=== PATIENT | male | born 1965 | race African-American/Black ===

== ENCOUNTER 2019-07-16 08:32 | Outpatient (CLI) | payer OTHER, SELFPAY ==
--- NOTE | 2019-07-16 08:38 | ECG_ITS ---
Measurements Intervals [place] Rate: 59 P: 32 NE: 204 QRS: -18 QRSD: 114 T: 30 QT: 437 QTc: 433 Interpretive Statements SINUS BRADYCARDIA INTRAVENTRICULAR CONDUCTION DELAY BORDERLINE R WAVE PROGRESSION, ANTERIOR LEADS BORDERLINE ECG Electronically Signed On 07-16-2019 9:47:22 [employer] by Giovanni Patel D.O.
== END 2019-07-16 08:33 | disposition home or self-care (01) ==
LOC: ANHSURGERY 08:38
PROVIDERS: PCP Family Medicine; Visit Provider Surgery
DX: E78.5 Hyperlipidemia, unspecified (principal); I45.9 Conduction disorder, unspecified
CPT/HCPCS: 93005

== ENCOUNTER 2019-07-30 00:35 | Day surgery (SDC) | payer OTHER, SELFPAY ==
[2019-07-09 13:29] VITALS: BMI 36.8
--- NOTE | 2019-07-16 14:28 | PC.NURSE ---
PT DENIES ANY CHANGE IN HEALTH OR MEDICATION SINCE INTERVIEW. NEW DATE AND TIME GIVEN. DENIES ANY QUESTIONS ABOUT INSTRUCTIONS
[2019-07-30] MEDS: LACTATED RINGERS 1,000 ML 30 ML IV CONT ×2 (11:15→14:45)
[2019-07-30 11:17] VITALS: BP 112/67; PULSE 68; RESP 20; TEMP 36.8; O2SAT 99
--- NOTE | 2019-07-30 12:31 | PM.PROC ---
Procedure Note - Detailed Date of procedure: 07/30/19 Pre-op diagnosis: Hidradenitis Suppurativa Post-op diagnosis: same Procedure performed: 1. Excision 8cm Perineal Hidradenitis 2. Excision 6cm and 4cm left groin hidradenitis 3. Excision 4cm right groin hidradenitis Description of procedure: Procedure as well as risks, benefits, and alternatives were discussed with the patient. Written consent was obtained and placed in chart prior to procedure. Patient was brought back to surgical suite. He was placed supine on operating table. Time-out was done to confirm patient procedure. He was then intubated by the Anesthesia Department. He was then repositioned in to modified lithotomy position in stirrups. His perineal and groin region was prepped and draped in sterile fashion using Betadine prep. 1% lidocaine with epinephrine was infiltrated locally around the 3 areas for hidradenitis excision. The perineal region was excised 1st. An 8 cm elliptical incision was made around the area of hidradenitis in the perineum using a 15 blade scalpel. Electrocautery was used for hemostasis and for dissection through the subcutaneous tissue the involved skin was carefully excised completely using electrocautery. The wound bed was then inspected, and hemostasis appeared adequate. The area was then irrigated with sterile saline. The skin was then reapproximated using 4 0 nylon simple interrupted sutures. I then proceeded with the low left groin hidradenitis. A 6 cm elliptical incision was made around the area of left groin hidradenitis using a 15 blade scalpel. This was sharply carried down through the skin into the subcutaneous tissue. Electrocautery was then used for complete excision from the underlying subcutaneous attachments. There appeared to be some undermining more proximally in the groin to another area of hidradenitis. The decision was then made to also excise this area. A 4 cm elliptical incision was made around this 2nd area of hidradenitis in the left groin region. This was also excised using electrocautery. The area was then irrigated with sterile saline. The 2 incisions on this side were reapproximated using a combination of 4 0 nylon simple interrupted sutures and 3 0 nylon vertical mattress interrupted sutures. The right groin hidradenitis was then excised. A 4 cm elliptical incision was made around this area using a 15 blade scalpel. The incision was sharply carried down through the skin, and then electrocautery was used to excise the involved skin from the surrounding subcutaneous attachments. This area was irrigated with sterile saline and then the skin edges were reapproximated using 4 0 nylon simple interrupted sutures. Bacitracin ointment was then applied over each of the incisions, and 4 x 4 gauze ABD pads and mesh underwear were then applied. The patient was then awakened from anesthesia, extubated, and transferred to recovery. Anesthesia: GETA and local (1% lidocaine with epi) Surgeon: Santiago Garcia DO Estimated blood loss (mL): 20 Complications: No immediate complications Condition: stable Disposition: same day Findings: This is a 54-year-old man who presented with areas of weeping wounds on his perineum and groin region. He has had multiple infections in these regions and continues to have wounds that do not fully heal. He has been placed on multiple rounds of antibiotics, but continues to have drainage from these wounds. He has had an area of hidradenitis excised in the left groin region once in the past, and this appeared to reoccur in the same location. Discussions were made with the patient about treatment options, and decision was made to proceed with excision of perineal hidradenitis and bilateral groin hidradenitis. Excision of hidradenitis was performed as described above. The patient had significant tracking in the perineal region involving several tracks underneath the skin. There was some bloody drainage, but no sign
--- NOTE | 2019-07-30 12:32 | PM.IMHP ---
H&P: HPI History of Present Illness Chief complaint: Hidradenitis Suppurativa Narrative: Poncho Ochoa is a 54 year old male who presents with multiple areas of drainage and intermittent infection in his groin and perineal region. He has been on antibiotics multiple times but continues to have drainage. Review of Systems Review of Systems: All systems reviewed & are unremarkable except as noted in HPI and below (HPI) PMFSH Past Medical History Medical History Arthropathy, chondrocalcinosis, shoulder Ganglion cyst Hyperlipidemia ALEJANDRO (obstructive sleep apnea) Wrist arthropathy Surgical History Surgical History Dislocation of carpometacarpal joint of thumb H/O shoulder surgery Hidradenitis History of Achilles tendon repair History of colonoscopy History of uvulopalatopharyngoplasty Social History Social History Smoking status: Never smoker Alcohol intake: current Substance use: never Gender identity (if verbalized by the patient): Male Meds Home Medications and Allergies Home Medications Medication Instructions Recorded Confirmed Type atorvastatin 20 mg tablet 20 mg PO DAILY 06/20/19 07/30/19 History doxycycline hyclate 100 mg capsule 100 mg PO DAILY 06/20/19 07/30/19 History meloxicam 15 mg tablet 15 mg PO DAILY 06/20/19 07/30/19 History triamcinolone acetonide 0.1 % 1 applic TOPICAL BID 06/20/19 07/30/19 History topical cream Allergies Allergy/AdvReac Type Severity Reaction Status Date / Time apricot Allergy Mild hives Verified 07/30/19 11:09 Sulfa (Sulfonamide Allergy Mild hives Verified 07/30/19 11:09 Antibiotics) Influenza Virus Vaccines AdvReac Mild gets reall Verified 07/30/19 11:09 sick from it Vital Signs Vital Signs - 24 hr 07/30/19 11:17 Temperature 36.8 C Pulse Rate 68 Respiratory Rate 20 Blood Pressure 112/67 Pulse Oximetry 99 Exam Const: General: no acute distress and alert Orientation/consciousness: patient oriented x3 HENMT: Head: normocephalic and atraumatic Ears: hearing grossly normal bilaterally General nose exam: Normal nares present Mouth: Yes Normal oral and palatal mucosa present Eyes: Periorbital: periorbital findings normal Sclera: sclerae normal EOM: EOMs intact bilaterally Neck: Neck: normal visual inspection, no lymphadenopathy and trachea midline Chest: Chest palpation & inspection: normal inspection of the chest Resp: Effort & Inspection: normal respiratory effort Auscultation: clear to auscultation bilaterally Cardio: Jugular venous distension: no JVD Rate: regular rate Rhythm: regular rhythm Heart sounds: S1 normal heart sound present and S2 normal heart sound present Peripheral pulses: Peripheral pulses 2+ throughout GI: Inspection: normal to inspection GI Palp: Yes Soft to palpation, No Tenderness to palpation present (GI), No Guarding due to palpation present (GI) and No Rebound tenderness present Percussion: Yes normal to percussion Auscultation: normal bowel sounds : General: Yes no CVA tenderness Back/Spine/Pelvis: Back: no CVA tenderness Skin: Lesions: other (bilateral groin hidradentitis and perineal hidradenitis) Neuro: General: patient oriented x3, no focal motor deficits and CN's II-XI intact bilaterally Cognition (Neuro): normal cognition Speech: normal speech Motor exam (neuro): 5/5 motor strength present throughout Extrem: General: capillary refill normal and no clubbing, cyanosis or edema Assessment and Plan Assessment and plan (1) Hidradenitis suppurativa: Code(s): L73.2 - Hidradenitis suppurativa Status: Acute Assessment and Plan: I have recommended excision of bilateral groin hidradenitis and excision of perineal hidradenitis. I have discussed the procedure, risks, benefits, and alternatives w
--- NOTE | 2019-07-30 12:36 | P.PNAN_ITS ---
Anes - Initial Pre Proc Eval Procedure: Operation Date: 07/30/19 13:00 Proposed Procedures p Excision Bilateral Groin Hidradenitis, Excision Perineal Hidradenitis - Santiago Garcia DO Date/Time: 07/30/19 12:36 Surgeon: Santiago Garcia DO Pre Op Diagnosis: Hidradenitis Suppurativa Patient Data Age: 54 Gender: M Height: 1.83 m Weight: 126.6 kg Last Vital Signs Temp 36.8 C 07/30/19 11:17 Pulse 68 07/30/19 11:17 Resp 20 07/30/19 11:17 BP 112/67 07/30/19 11:17 Pulse Ox 99 07/30/19 11:17 Allergies Allergy/AdvReac Type Severity Reaction Status Date / Time apricot Allergy Mild hives Verified 07/30/19 11:09 Sulfa (Sulfonamide Allergy Mild hives Verified 07/30/19 11:09 Antibiotics) Influenza Virus Vaccines AdvReac Mild gets reall Verified 07/30/19 11:09 sick from it Home Medications Medication Instructions Recorded Confirmed Type atorvastatin 20 mg tablet 20 mg PO DAILY 06/20/19 07/30/19 History doxycycline hyclate 100 mg capsule 100 mg PO DAILY 06/20/19 07/30/19 History meloxicam 15 mg tablet 15 mg PO DAILY 06/20/19 07/30/19 History triamcinolone acetonide 0.1 % 1 applic TOPICAL BID 06/20/19 07/30/19 History topical cream ECG: SINUS BRADYCARDIA INTRAVENTRICULAR CONDUCTION DELAY BORDERLINE R WAVE PROGRESSION, ANTERIOR LEADS BORDERLINE ECG Patient hx anesthesia problems: none Family hx anesthesia problems: none [facility] Past Medical History Medical History Arthropathy, chondrocalcinosis, shoulder Ganglion cyst Hyperlipidemia ALEJANDRO (obstructive sleep apnea) Wrist arthropathy Surgical History Surgical History Dislocation of carpometacarpal joint of thumb H/O shoulder surgery Hidradenitis History of Achilles tendon repair History of colonoscopy History of uvulopalatopharyngoplasty Social History Social History Smoking status: Never smoker Alcohol intake: current Substance use: never Gender identity (if verbalized by the patient): Male Anes - Eval Final PreProcedure Day of Procedure 07/30/19 12:36 Informed Consent: The patient's anesthetic plan and its attendant risks and benefits were discussed with the patient/family/POA. Questions were solicited and answers provided to the satisfaction of the patient/family/POA.
[2019-07-30] MEDS: ceFAZolin 3 GM/D5W 100 ML 100 ML IVPB (12:49)
[2019-07-30] MEDS: LIDO 1%/EPINEPHRINE 1:100,000 20 ML VIAL INFILTRATE (13:27)
[2019-07-30] MEDS: BACITRACIN OINTMENT 15 GM TUBE 1 APPLIC TOPICAL (13:53)
[2019-07-30] MEDS: KETOROLAC 30 MG/ML VIAL (*BKC) IV PUSH (14:26)
[2019-07-30 14:45] VITALS: BP 132/68; PULSE 75; RESP 22; TEMP 36.1; O2SAT 100
[2019-07-30 15:00] VITALS: BP 130/78; PULSE 87; RESP 18; O2SAT 100
[2019-07-30 15:15] VITALS: BP 142/82; PULSE 77; RESP 14; O2SAT 100
[2019-07-30 15:25] VITALS: BP 131/64; PULSE 68
[2019-07-30 15:55] VITALS: BP 123/59; PULSE 67
== END 2019-07-30 16:28 | disposition home or self-care (01) ==
PROVIDERS: PCP Family Medicine; Visit Provider Surgery
PROC: (CPT 11462; principal; 2019-07-30 13:00)
DX: L73.2 Hidradenitis suppurativa (principal); E78.5 Hyperlipidemia, unspecified; G47.33 Obstructive sleep apnea (adult) (pediatric)
CPT/HCPCS: 11462; 11470; 88304; A9270; J0330; J0690; J1100; J1885; J2250; J2370; J2405; J2704; J3010; J7120

== ENCOUNTER 2019-11-20 07:45 | Outpatient (RCR) | payer OTHER, SELFPAY ==
[2019-09-13 12:25] VITALS: BMI 38.7
--- NOTE | 2019-09-25 16:33 | WPDWOUNDNOTE ---
Wound Care Note Date/Time: 09/25/19 12:33 History: The patient has a history of Hidradenitis Suppurativa, hyperlipidemia, and obstructive sleep apnea who was evaluated by Dr. Garcia for the H.S. after being on antibiotics multiple times for areas of infection and intermittent drainage of the groin and perineal area. Wound history: The patient underwent excision of 8cm perineal hidradenitis, excision 6cm and 4cm left groin hidradenitis, and excision 4cm right groin hidradenitis on 07/30/19. Pathology showed hidradenitis suppurativa. Since surgery, he has been followed as an outpatient by Dr. Garcia regarding wound care. His perineal and right groin incisions had dehisced post-operatively and now he is dealing with chronic wound care. Left groin incision remained intact and after sutures were removed in the office, this wound has apparently been healing well without complaints. He was referred to the wound clinic by Dr. Garcia to evaluate the patient for wound care. The patient has been applying silver gel and gauze to the open wounds daily. The patient reports his pain has improved tremendously and he is now just having intermittent twinges of pain with certain movements, such as bending or squating. He reports that for the past 1.5 weeks he has been noticing bleeding. He states that about 1.5 weeks ago he had a significant amount of bleeding that he noticed after having a bowel movement. He called the wound clinic and increased his dressing changes. He states his dressings were saturated in blood and he was having to change them frequently throughout the day. The bleeding quickly diminished but he is still reporting having bloody drainage that he associated with one of his incisions. He reports that he is taking 3 showers a day and requiring gauze dressing changes three times daily. When he changes the gauze, he states the gauze is nearly saturated with a yellow/bloody drainage. He reports significant tenderness in the perineum that is slightly more tender over the past two weeks. Denies fevers or chills. No other complaints. Wound approximation: No Wound width: Left groin: 1cm Right perineal: 0.2cm Wound length: Left groin: 5cm Right perineal: 3.3cm Wound depth: Left groin: 0.2 cm Right perineal: 1 cm Drainage: Right perineal: Bloody drainage Surrounding tissue appearance: No surrounding signs of infection. About a 1 cm area of induratio noted just medial and anterior to the perineal incision that is in the crease of the skin that is TTP. Tunneling: Right perineal incision with a new opening just medial to this that had 1 cm of tunneling anteriorly. Dressings: Silver gel and gauze. Assessment and Plan Assessment and plan (1) Hidradenitis suppurativa: Code(s): L73.2 - Hidradenitis suppurativa Status: Acute Assessment and Plan: The patient is now dealing with chronic wounds that are slowly healing following surgery. The left groin incision continues to heal well and is stable at this time. The right perineal incision does have a new 0.5 cm opening directly medial to the incision that is connected but shows no evidence of acute infection. This incision appears to be the area that the patient is having some bleeding from. We were able to get the bleeding to stop while in the office with holding pressure and his dressings were reapplied. Instructed the patient to continue local wound care with silver gel and gauze dressing changes with showering three times daily. I spoke with Dr. Garcia regarding this patient's case and his exam today. He will plan to follow-up with the patient in 1-2 weeks back in the wound clinic. I instructed the patient to also apply pressure to the perineal incision for about 10 minutes if he has an episode of increased bleeding as he did before and if the bleeding does not resolve, then he should call the office/wound clinic. Will follow-up in 1-2 weeks. (2) Encounter for surgical aftercare following surgery on the skin and subc
--- NOTE | 2019-10-08 14:46 | P.PNWOUND_ITS ---
Wound Care Note Date/Time: 10/08/19 14:46 History: s/p excision hidradenitis perineum, right groin and left groin 07/30/19 Wound history: Patient had perineum and right groin wound dehisce in the early postoperative period. Left groin wound healed appropriately. He was continuing local wound care at home for a month, but was not having much progress. Referred to wound clinic for help with wound care. He has been applying silver gel daily to the open wounds. At visit on 09/24, he was having a lot of bloody drainage and induration around right groin wound. This appeared to track to a new area just medial to the open wound and eventually opened as well. Drainage and bleeding has significantly improved since then. He is doing well with continued daily dressing changes. Wound approximation: No Surrounding tissue appearance: healthy Percentage granulation tissue: 100% Dressings: Silver gel and 4x4 gauze daily Assessment and Plan Assessment and plan (1) Encounter for surgical aftercare following surgery on the skin and subcutaneous tissue: Code(s): Z48.817 - Encounter for surgical aftercare following surgery on the skin and subcutaneous tissue Status: Acute Assessment and Plan: * Continue local wound care with Wound Clinic. Silver gel and 4x4 gauze daily. Will reassess in 2 weeks. Call for increasing drainage or other new problems. (2) Hidradenitis suppurativa: Code(s): L73.2 - Hidradenitis suppurativa Status: Acute Review of Systems Constitutional: Constitutional: Denies chills and Denies fever(s) Exam Skin: Other: Open wounds of perineum and right groin as described in wound care nurse documentation.
--- NOTE | 2019-10-22 12:53 | P.PNWOUND_ITS ---
Wound Care Note Date/Time: 10/22/19 12:53 History: s/p excision hidradenitis perineum, right groin and left groin 07/30/19 Wound history: Patient had perineum and right groin wound dehisce in the early postoperative period. Left groin wound healed appropriately. He was continuing local wound care at home for a month, but was not having much progress. Referred to wound clinic for help with wound care. He has been applying silver gel daily to the open wounds. At visit on 09/24, he was having a lot of bloody drainage and induration around right groin wound. This appeared to track to a new area just medial to the open wound and eventually opened as well. Drainage and bleeding has significantly improved since then. He is doing well with continued daily dressing changes. Pain is minimal at this point and he is no longer having the significant bloody drainage. Wound approximation: No Drainage: serosanguinous Surrounding tissue appearance: healthy Percentage granulation tissue: 100% Assessment and Plan Assessment and plan (1) Encounter for surgical aftercare following surgery on the skin and subcutaneous tissue: Code(s): Z48.817 - Encounter for surgical aftercare following surgery on the skin and aleman bcutaneous tissue Status: Acute Assessment and Plan: * Continue daily wound care at home with Silver Gel and 4x4 gauze. Will have patient follow up in wound clinic in 4 weeks. Call sooner for any significant problems. (2) Hidradenitis suppurativa: Code(s): L73.2 - Hidradenitis suppurativa Status: Acute Review of Systems Constitutional: Constitutional: Denies chills and Denies fever(s) Exam Skin: Other: Wound in perineum is very shallow and continuing to close. Right groin wound healing as well.
--- NOTE | 2019-11-20 14:39 | P.PNWOUND_ITS ---
Wound Care Note Date/Time: 11/20/19 14:39 History: s/p excision hidradenitis perineum, right groin and left groin 07/30/19 Wound history: Patient had perineum and right groin wound dehisce in the early postoperative period. Left groin wound healed appropriately. He was continuing local wound care at home for a month, but was not having much progress. Referred to wound clinic for help with wound care. He has been applying silver gel daily to the open wounds. At visit on 09/24, he was having a lot of bloody drainage and induration around right groin wound. This appeared to track to a new area just medial to the open wound and eventually opened as well. Drainage and bleeding has significantly improved since then. He is doing well with continued daily dressing changes. Over the past couple weeks, he has been more active and has noticed a little more pain with the wound in the perineum. He still notices bleeding when having a BM. Wound approximation: No Drainage: serosanguinous and slightly purulent Surrounding tissue appearance: healthy Percentage granulation tissue: 100% Wound width: 0.6 cm Wound length: 6 cm Wound depth: 0.1 cm Dressings: Mupirocin ointment with Silver gel and gauze bandage Assessment and Plan Assessment and plan (1) Hidradenitis suppurativa: Code(s): L73.2 - Hidradenitis suppurativa Status: Acute Assessment and Plan: * Continue daily wound care at home with Mupirocin ointment, Silver Gel and 4x4 gauze. Will have patient follow up in wound clinic in 4 weeks. Call sooner for any significant problems. (2) Non-healing surgical wound: Qualifiers: Encounter type: subsequent encounter Qualified Code(s): T81.89XD - Other complications of procedures, not elsewhere classified, subsequent encounter Code(s): T81.89XA - Other complications of procedures, not elsewhere classified, initial encounter Status: Acute Review of Systems Review of Systems: All systems reviewed & are unremarkable except as noted in HPI and below Exam Skin: Other: See wound assessment. No surrounding erythema, warmth, or fluctuance.
== END 2019-12-12 23:59 | disposition home or self-care (01) ==
LOC: ANHWOC 07:45
PROVIDERS: Visit Provider Surgery
DX: L73.2 Hidradenitis suppurativa (principal)
CPT/HCPCS: 99212; A9270; G0463

== ENCOUNTER 2019-12-31 07:28 | Outpatient (RCR) | payer OTHER, SELFPAY ==
[2019-12-13 00:04] VITALS: BMI 38.7
--- NOTE | 2019-12-17 14:48 | P.PNWOUND_ITS ---
Wound Care Note Date/Time: 12/17/19 14:48 History: s/p excision hidradenitis perineum, right groin and left groin 07/30/19 Wound history: Patient had perineum and right groin wound dehisce in the early postoperative period. Left groin wound healed appropriately. He was continuing local wound care at home for a month, but was not having much progress. Referred to wound clinic for help with wound care. He has been applying silver gel daily to the open wounds. At visit on 09/24, he was having a lot of bloody drainage and induration around right groin wound. This appeared to track to a new area just medial to the open wound and eventually opened as well. The past 2 weeks have been increasingly more painful with significant pain along the right groin/perineum. He has been changing the gauze more frequently and applying silver gel often. States this feels about the same way that it felt before he had the original surgery. Wound approximation: No Wound width: 1cm Wound length: 4cm Wound depth: 0.2cm Drainage: serosanguinous and purulent Surrounding tissue appearance: healthy Percentage granulation tissue: 100% Assessment and Plan Assessment and plan (1) Hidradenitis suppurativa: Code(s): L73.2 - Hidradenitis suppurativa Status: Acute Assessment and Plan: * Patient now appears to be developing a new area of hidradenitis to right groin region and continues to have problems with perineum not healing. Will prescribe Doxycycline 100mg BID x 14 days to allow purulent drainage to clear up. Also will change to triple care antifungal cream to aid with skin h ealing. Will reassess after 2 more weeks of antibiotics, but will likely require another surgery to excise the new area and attempt to excise and close the non-healing wound in the midline perineum. Patient voiced his understanding and is agreeable to plan. (2) Non-healing surgical wound: Qualifiers: Encounter type: subsequent encounter Qualified Code(s): T81.89XD - Other complications of procedures, not elsewhere classified, subsequent encounter Code(s): T81.89XA - Other complications of procedures, not elsewhere classified, initial encounter Status: Acute Exam Skin: Other: See wound measurements
--- NOTE | 2019-12-31 09:29 | P.PNWOUND_ITS ---
Wound Care Note Date/Time: 12/31/19 09:29 History: s/p excision hidradenitis perineum, right groin and left groin 07/30/19 Wound history: Patient had perineum and right groin wound dehisce in the early postoperative period. Left groin wound healed appropriately. He was continuing local wound care at home for a month, but was not having much progress. Referred to wound clinic for help with wound care. He has been applying silver gel daily to the open wounds. At visit on 09/24, he was having a lot of bloody drainage and induration around right groin wound. This appeared to track to a new area just medial to the open wound and eventually opened as well. Two weeks ago, wounds have been increasingly more painful with significant pain along the right groin/perineum. He has been changing the gauze more frequently and applying silver gel often. States this feels about the same way that it felt before he had the original surgery. He was given a 2 week course of antibiotics without much relief. Wound approximation: No Assessment and Plan Assessment and plan (1) Hidradenitis suppurativa: Code(s): L73.2 - Hidradenitis suppurativa Status: Acute Assessment and Plan: * Patient continues to have problematic areas along right groin and perineum. He has tried several months of local wound care and oral antibiotics without significant improvement. I have recommended excision of right groin and perineum hidradentitis. I have discussed the procedure, risks, benefits, and alternatives. Questions answered. Patient would like to proceed with surgery in the first week of January if possible. Exam 2 Skin: Other: Multiple open wounds along right groin with scant purulent and bloody drainage. Midline perineum wound with granulation tissue and serosanguinous drainage.
== END 2020-03-03 09:51 | disposition home or self-care (01) ==
LOC: ANHWOC 07:28
PROVIDERS: Visit Provider Surgery
DX: L73.2 Hidradenitis suppurativa (principal)
CPT/HCPCS: 99212; G0463

== ENCOUNTER 2020-01-19 01:47 | Outpatient (CLI) | payer OTHER, SELFPAY ==
[2020-01-19 19:30] LABS: SARS-CoV-2 RNA PCR Negative
== END 2020-01-19 01:48 | disposition home or self-care (01) ==
LOC: ANHCOVIDDT 01:47
PROVIDERS: PCP Family Medicine; Visit Provider Surgery
DX: Z01.812 Encounter for preprocedural laboratory examination (principal); Z20.828 Contact with and (suspected) exposure to other viral communicable diseases
CPT/HCPCS: 87635; C9803; U0003

== ENCOUNTER 2020-01-22 01:36 | Day surgery (SDC) | payer OTHER, SELFPAY ==
[2020-01-09 12:58] VITALS: BMI 36.8
--- NOTE | 2020-01-21 09:17 | WPDANESEPP ---
Anes - Eval Pre Procedure Procedure: Operation Date: 01/22/20 08:30 Proposed Procedures p Excision Right Groin and Perineum Hidradenitis - Santiago Garcia DO Date/Time: 01/21/20 09:17 Pre Op Diagnosis: hidradenitis suprativa Patient Data Age: 54 Gender: M Height: 1.83 m Weight: 123 kg Allergies Allergy/AdvReac Type Severity Reaction Status Date / Time apricot Allergy Mild hives Verified 01/09/20 13:00 Sulfa (Sulfonamide Allergy Mild hives Verified 01/09/20 13:00 Antibiotics) Influenza Virus Vaccines AdvReac Mild FLU Verified 01/09/20 13:00 SYMPTOMS- CAUSED PNEUMONIA Home Medications Medication Instructions Recorded Confirmed Type atorvastatin 20 mg tablet 20 mg PO QPM 06/20/19 01/09/20 History meloxicam 15 mg tablet 15 mg PO QPM 06/20/19 01/09/20 History triamcinolone acetonide 0.1 % 1 applic TOPICAL BID PRN 06/20/19 01/09/20 History topical cream Patient hx anesthesia problems: none Family hx anesthesia problems: none PMFSH Past Medical History Medical History Arthropathy, chondrocalcinosis, shoulder Ganglion cyst Hyperlipidemia ALEJANDRO (obstructive sleep apnea) Wrist arthropathy Surgical History Surgical History Dislocation of carpometacarpal joint of thumb H/O shoulder surgery Hidradenitis History of Achilles tendon repair History of colonoscopy History of uvulopalatopharyngoplasty Social History Social History Smoking status: Never smoker Alcohol intake: never Substance use: never Gender identity (if verbalized by the patient): Male Spiritual care concerns: No Exam Day of Procedure 01/21/20 09:17
[2020-01-22] VITALS (7 sets, daily range): BP systolic 105–126; BP diastolic 57–67; PULSE 57–77; RESP 12–18; TEMP 36.4–36.6; O2SAT 99–100
--- NOTE | 2020-01-22 07:24 | PM.IMHP ---
H&P: HPI History of Present Illness Date/Time: 01/22/20 07:24 Chief complaint: hidradenitis suprativa Narrative: Poncho Ochoa is a 54 year old male who presents with recurrent hidradenitis in his groin and perineum. Review of Systems Review of Systems: All systems reviewed & are unremarkable except as noted in HPI and below Eyes: Eyes: Denies change in vision ENT: Denies hearing loss, Denies neck pain and Denies sore throat Cardiovascular: Cardiovascular: Denies chest pain and Denies dyspnea Respiratory: Respiratory: Denies cough, Denies dyspnea and Denies wheezing Genitourinary: Genitourinary: Denies hematuria and Denies dysuria Musculoskeletal: Musculoskeletal: Denies arthralgias, Denies joint swelling and Denies neck pain Allergic/Immunologic: Allergic/Immunologic: Denies wheezing PMFSH Past Medical History Medical History Arthropathy, chondrocalcinosis, shoulder Ganglion cyst Hyperlipidemia ALEJANDRO (obstructive sleep apnea) Wrist arthropathy Surgical History Surgical History Dislocation of carpometacarpal joint of thumb H/O shoulder surgery Hidradenitis History of Achilles tendon repair History of colonoscopy History of uvulopalatopharyngoplasty Social History Social History Smoking status: Never smoker Alcohol intake: never Substance use: never Gender identity (if verbalized by the patient): Male Spiritual care concerns: No Meds Home Medications and Allergies Home Medications Medication Instructions Recorded Confirmed Type atorvastatin 20 mg tablet 20 mg PO QPM 06/20/19 01/09/20 History meloxicam 15 mg tablet 15 mg PO QPM 06/20/19 01/09/20 History triamcinolone acetonide 0.1 % 1 applic TOPICAL BID PRN 06/20/19 01/09/20 History topical cream Allergies Allergy/AdvReac Type Severity Reaction Status Date / Time apricot Allergy Mild hives Verified 01/09/20 13:00 Sulfa (Sulfonamide Allergy Mild hives Verified 01/09/20 13:00 Antibiotics) Influenza Virus Vaccines AdvReac Mild FLU Verified 01/09/20 13:00 SYMPTOMS- CAUSED PNEUMONIA Exam Const: General: alert; No acute distress Orientation/consciousness: patient oriented x3 Limitations: no limitations HENMT: Head: normocephalic and atraumatic Ears: hearing grossly normal bilaterally General nose exam: Normal external nose present and Normal nares present Mouth: Yes Normal oral and palatal mucosa present and Yes moist mucous membranes Eyes: General: appearance normal, both eyes and all related structures Conjunctivae: conjunctivae normal Sclera: sclerae normal Pupils: Equal, round and reactive pupils present EOM: EOMs intact bilaterally Neck: Neck: normal visual inspection, full ROM, no lymphadenopathy, supple and no JVD Lymphatic: no lymphadenopathy noted Chest: Chest palpation & inspection: normal inspection of the chest Resp: Effort & Inspection: normal respiratory effort and able to speak in complete sentences Auscultation: clear to auscultation bilaterally Percussion: percussion normal Cardio: Jugular venous distension: no JVD Rate: regular rate Rhythm: regular rhythm Heart sounds: S1 normal heart sound present and S2 normal heart sound present Peripheral pulses: Peripheral pulses 2+ throughout GI: Inspection: normal to inspection GI Palp: No abdominal tenderness, Yes Soft to palpation, No Guarding due to palpation present (GI), No Hernia present and No Rebound tenderness present Percussion: Yes normal to percussion Auscultation: normal bowel sounds : General: Yes no CVA tenderness Back/Spine/Pelvis: Back: no CVA tenderness Skin: General skin exam: normal color and dry skin Other: Hidradenitis in right groin and perineum Neuro: General: patient oriented x3, gait normal, moves all extremities, no focal motor d
[2020-01-22] MEDS: LACTATED RINGERS 1,000 ML 30 ML IV CONT ×2 (07:30→09:57)
--- NOTE | 2020-01-22 08:26 | WPDHPUPDATE1 ---
History and Physical Update Update Date/Time: 01/22/20 08:26 History and Physical has been reviewed, including an updated exam of the patient. There are NO changes in the patient's condition. Risks, benefits, and alternatives have been discussed and questions answered. Patient agrees to proceed with procedure.
--- NOTE | 2020-01-22 08:29 | P.PNAN_ITS ---
Anes - Eval Final PreProcedure Day of Procedure 01/22/20 08:29 Patient weight: obese Heart: regular rate and rhythm Lungs: clear to auscultation Airway: Mallampati scale class II Neurological: alert and oriented Last oral intake: >/= 8 hours ASA classification: III Emergent: no Anesthetic plan: proceed Anesthesia type and monitoring: general LMA and standard monitoring Informed Consent: The patient's anesthetic plan and its attendant risks and be nefits were discussed with the patient/family/POA. Questions were solicited and answers provided to the satisfaction of the patient/family/POA.
[2020-01-22] MEDS: ceFAZolin 3 GM/D5W 100 ML 100 ML IVPB (08:33)
[2020-01-22] MEDS: LIDO 1%/EPINEPHRINE 1:100,000 20 ML VIAL INFILTRATE (09:08)
[2020-01-22] MEDS: KETOROLAC 30 MG/ML VIAL (*BKC) IV PUSH (09:39)
--- NOTE | 2020-01-22 10:03 | PM.PROC ---
Procedure Note - Detailed Date of procedure: 01/22/20 Pre-op diagnosis: hidradenitis suprativa right groin and perineum Post-op diagnosis: same Procedure performed: Excision right groin hidradenitis Excision perineum hidradenitis Description of procedure: Procedure as well as risks benefits alternatives were explained to the patient. Written consent was obtained and placed in chart prior to procedure. Patient was brought back to surgical suite. He was placed supine on operating table. Time-out was done to confirm patient and procedure. He was then intubated by Anesthesia Department. He was then repositioned in to dorsal lithotomy in [facility]. His perineal and right groin area was prepped and draped in sterile fashion using Betadine prep. 1% lidocaine with epinephrine was infiltrated locally around the areas of hidradenitis. A 10 cm vertical elliptical incision was made around the right groin hidradenitis using a 15 blade scalpel. Electrocautery was then used for hemostasis and for dissection of the hidradenitis skin off of the subcutaneous tissue. The hidradenitis skin was completely excised. The wound bed was inspected and electrocautery was used for hemostasis. The wound bed was then irrigated with sterile saline. No other abnormalities were identified. The skin edges were then reapproximated using 3 0 nylon vertical mattress interrupted sutures. The perineum hidradenitis was then excised next. A 10 cm elliptical incision was made vertically to completely excise the perineum hidradenitis. Electrocautery was used to dissect the hidradenitis skin off of the subcutaneous tissue. The wound bed was then inspected and hemostasis was achieved with electrocautery. The wound bed was then irrigated with sterile saline. The skin edges were then reapproximated using 3 0 nylon vertical mattress interrupted sutures. 4 x 4 gauze and ABD pads were then applied followed by mesh underwear. The patient was then awakened from anesthesia, extubated, and transferred to recovery. Anesthesia: GLMA and local (1% Lidocaine with epi) Surgeon: Santiago Garcia DO Estimated blood loss (mL): 20 Pathology: yes Complications: No immediate complications Condition: stable Disposition: same day Findings: This is a 54-year-old man who presents with multiple areas of recurrent hidradenitis. He has had a hidradenitis in both groin regions in the past as well as in the perineum. He now presents with recurrent hidradenitis in the right groin region and perineum. Local wound care techniques were utilized as well as oral antibiotics, but patient continues to have recurrent infection and nonhealing wounds. Decision was made to proceed with excision of hidradenitis and right groin and perineum. Excision of hidradenitis was performed. The patient has fairly extensive hidradenitis in the right groin region with multiple open wounds with purulence drainage. An excision was made to encompass all of the areas of hidradenitis. This was a 10 cm elliptical incision and this region. He had a couple other small wounds higher up in the inguinal and suprapubic region, but these did not appear to be draining purulence fluid and were too far away to include within the excision down lower. He also had a wide open wound from prior excision of hidradenitis in the perineum with current active inflammation. Another 10 cm elliptical incision was made in the perineum to adequately excise this region. Both wounds were closed using 3 0 nylon vertical mattress interrupted sutures. These specimens were sent to the lab for pathology.
== END 2020-01-22 12:05 | disposition home or self-care (01) ==
PROVIDERS: PCP Family Medicine; Visit Provider Surgery
PROC: (CPT 11470; principal; 2020-01-22 08:30)
DX: L73.2 Hidradenitis suppurativa (principal); E78.5 Hyperlipidemia, unspecified; G47.33 Obstructive sleep apnea (adult) (pediatric); E66.9 Obesity, unspecified; Z68.36 Body mass index [BMI] 36.0-36.9, adult; Z88.2 Allergy status to sulfonamides; Z88.7 Allergy status to serum and vaccine; Z79.899 Other long term (current) drug therapy
CPT/HCPCS: 11470; 11462; 88304; A9270; J0690; J1100; J1885; J2250; J2405; J2704; J3010; J7120